=== PATIENT | female | born 1990 | race Caucasian/White ===

== ENCOUNTER → 2016-10-06 | Outpatient (CLI) | payer OTHER | LOC: RAD 13:56 | PROVIDERS: ATTEND Nurse Practitioner Acute Care | DX: R50.9 Fever, unspecified (principal) | CPT/HCPCS: 71020; 87804 ==

== ENCOUNTER 2017-01-04 16:48 | Emergency (ER) | payer OTHER ==
--- NOTE | 2017-01-04 17:16 | ER Document Report ---
ED Medical Screen (RME) - General Chief Complaint: Upper Abdominal Pain Stated Complaint: ABDOMINAL PAIN Time Seen by Provider: 01/04/17 17:08 Notes: 26-year-old female without a gallbladder who presents with the onset of some initially epigastric pain on Tuesday. It has now spread more diffusely to the abdomen radiating to the back. She states nausea without vomiting, fevers, or dysuria. She states a mild nonbloody diarrhea. She got sent over from the doctor's office for further evaluation. Patient denies any missed menstrual periods. TRAVEL OUTSIDE OF THE [place] IN LAST 30 DAYS: No - Related Data Allergies/Adverse Reactions: hydrocodone bitartrate [From Vicodin] Adverse Reaction (Intermediate, Verified 01/04/17 16:55) NAUSEA VOMITTING Past Medical History - Past Medical History Cardiac Medical History: Reports: Hx Hypertension - DURING Denies: Hx Heart Murmur Pulmonary Medical History: Reports: Hx Asthma Denies: Hx Sleep Apnea, Hx Tuberculosis Renal/ Medical History: Reports: Hx Ovarian Cysts. Denies: Hx Peritoneal Dialysis GI Medical History: Reports: Hx Gastroesophageal Reflux Disease Psychiatric Medical History: Reports: Hx Depression Past Surgical History: Reports: Hx Breast Surgery, Hx Section, Hx Cholecystectomy, Hx Orthopedic Surgery - L arm w hardware, Hx Tubal Ligation - Immunizations Immunizations up to date: Yes Hx Diphtheria, Pertussis, Tetanus Vaccination: Yes - 2009 Physical Exam - Vital signs Vitals: Temp Pulse Resp BP Pulse Ox 98.5 F 100 16 143/88 H 99 01/04/17 16:58 01/04/17 16:58 01/04/17 16:58 01/04/17 16:58 01/04/17 16:58 Course - Vital Signs Vital signs: Temp Pulse Resp BP Pulse Ox 98.5 F 100 16 143/88 H 99 01/04/17 16:58 01/04/17 16:58 01/04/17 16:58 01/04/17 16:58 01/04/17 16:58
[2017-01-04 18:08] LABS: ABSOLUTE EOSINOPHILS # (AUTO) 0.1 10^3/uL (0.0-0.6); ABSOLUTE LYMPHOCYTES (AUTO) 1.5 10^3/uL (0.5-4.7); ABSOLUTE MONOCYTES (AUTO) 0.4 10^3/uL (0.1-1.4); ABSOLUTE NEUT (AUTO) 2.1 10^3/uL (1.7-8.2); BASOPHILS % (AUTO) 0.7 % (0-2); EOSINOPHILS % (AUTO) 2.2 % (0-6); HEMATOCRIT 38.4 % (36.0-47.0); HEMOGLOBIN 13.5 g/dL (12.0-15.5); HGB HCT DIFFERENCE 2.1; LYMPHOCYTES % (AUTO) 36.5 % (13-45); MEAN CORPUSCULAR HEMOGLOBIN 31.8 pg (27.0-33.4); MEAN CORPUSCULAR HGB CONC 35.1 g/dL (32.0-36.0); MEAN CORPUSCULAR VOLUME 91 fl (80-97); MONOCYTES % (AUTO) 10.1 % (3-13); RED BLOOD COUNT 4.24 10^6/uL (3.72-5.28); SEGMENTED NEUTROPHILS % (AUTO) 50.5 % (42-78); WHITE BLOOD COUNT 4.1 10^3/uL (4.0-10.5)
[2017-01-04 18:29] LABS: ALANINE AMINOTRANSFERASE 41 U/L (9-52); ALBUMIN 4.3 g/dL (3.5-5.0); ALKALINE PHOSPHATASE 45 U/L (38-126); ANION GAP 11 (5-19); ASPARTATE AMINO TRANSFERASE 29 U/L (14-36); BILIRUBIN,DIRECT 0.3 mg/dL (0.0-0.4); BILIRUBIN,TOTAL 0.6 mg/dL (0.2-1.3); BLOOD UREA NITROGEN 12 mg/dL (7-20); CALCIUM 9.7 mg/dL (8.4-10.2); CARBON DIOXIDE 26 mmol/L (22-30); CHLORIDE 102 mmol/L (98-107); CREATININE RESULT 0.66 mg/dL (0.52-1.25); GLUCOSE 111 mg/dL (75-110); LIPASE 91.8 U/L (23-300); POTASSIUM 4.3 mmol/L (3.6-5.0); SODIUM 138.7 mmol/L (137-145); TOTAL PROTEIN 7.6 g/dL (6.3-8.2)
[2017-01-04 18:46] LABS: APPEARANCE,URINE SLIGHTLY-CLOUDY; BILIRUBIN,URINE NEGATIVE (NEGATIVE); GLUCOSE, URINE NEGATIVE (NEGATIVE); KETONES,URINE NEGATIVE (NEGATIVE); LEUKOCYTE ESTERASE,URINE NEGATIVE (NEGATIVE); NITRITE,URINE NEGATIVE (NEGATIVE); PROTEIN,URINE NEGATIVE (NEGATIVE); URINE SPECIFIC GRAVITY 1.014; UROBILINOGEN,URINE NEGATIVE mg/dL (<2.0)
--- NOTE | 2017-01-04 20:44 | ER Document Report ---
ED GI/ - General Chief Complaint: Upper Abdominal Pain Stated Complaint: ABDOMINAL PAIN Time Seen by Provider: 01/04/17 17:08 Mode of Arrival: Ambulatory Information source: Patient TRAVEL OUTSIDE OF THE [place] IN LAST 30 DAYS: No - HPI Patient complains to provider of: Abdominal pain, Diarrhea Onset: Other - 5 days Timing/Duration: Persistent, Waxing and waning Quality of pain: Achy, Fullness, Pressure Severity at maximum: Moderate Severity in ED: Moderate Pain Level: 3 Location: Right flank Vaginal bleeding (Compared to normal period): None Associated symptoms: Diarrhea, Loss of appetite, Nausea Exacerbated by: Food Relieved by: Denies Similar symptoms previously: Yes Recently seen / treated by doctor: Yes - sent from urgent care Notes: 01/04/17 20:42 Patient is a 26-year-old female who was sent over from urgent care for complaints of right-sided abdominal pain that's been going on for the past 4-5 days, it's associated with diarrhea, symptoms are worsened after eating, she has pain radiating to her shoulder, she denies any vomiting, no fever, she does report no appetite, symptoms are consistent with when she had gallbladder pain in the past, however she had a cholecystectomy in 2012, history of as well, no other abdominal surgeries, no sick contacts, no questionable food intake - Related Data Allergies/Adverse Reactions: hydrocodone bitartrate [From Vicodin] Adverse Reaction (Intermediate, Verified 01/04/17 16:55) NAUSEA VOMITTING Past Medical History - General Information source: Patient - Social History Smoking Status: Never Smoker Chew tobacco use (# tins/day): No Frequency of alcohol use: None Drug Abuse: None Family History: Reviewed & Not Pertinent, Arthritis, CAD, CVA, DM, Hyperlipidemia, Hypertension, Malignancy, Thyroid Disfunction Patient has suicidal ideation: No Patient has homicidal ideation: No - Past Medical History Cardiac Medical History: Reports: Hx Hypertension - DURING Denies: Hx Heart Murmur Pulmonary Medical History: Reports: Hx Asthma Denies: Hx Sleep Apnea, Hx Tuberculosis Renal/ Medical History: Reports: Hx Ovarian Cysts. Denies: Hx Peritoneal Dialysis GI Medical History: Reports: Hx Gastroesophageal Reflux Disease Psychiatric Medical History: Reports: Hx Depression Past Surgical History: Reports: Hx Breast Surgery, Hx Section, Hx Cholecystectomy, Hx Orthopedic Surgery - L arm w hardware, Hx Tubal Ligation - Immunizations Immunizations up to date: Yes Hx Diphtheria, Pertussis, Tetanus Vaccination: Yes - 2009 Review of Systems - Review of Systems Constitutional: No symptoms reported EENT: No symptoms reported Cardiovascular: No symptoms reported Respiratory: No symptoms reported Gastrointestinal: See HPI Genitourinary: No symptoms reported Female Genitourinary: No symptoms reported Musculoskeletal: No symptoms reported Skin: No symptoms reported Hematologic/Lymphatic: No symptoms reported Neurological/Psychological: No symptoms reported -: Yes All other systems reviewed and negative Physical Exam - Vital signs Vitals: Temp Pulse Resp BP Pulse Ox 98.5 F 100 16 143/88 H 99 01/04/17 16:58 01/04/17 16:58 01/04/17 16:58 01/04/17 16:58 01/04/17 16:58 Interpretation: Normal - General General appearance: Appears well, Alert - HEENT Head: Normocephalic, Atraumatic Eyes: Normal Pupils: PERRL - Respiratory Respiratory status: No respiratory distress Chest status: Nontender Breath sounds: Normal Chest palpation: Normal - Cardiovascular Rhythm: Regular Heart sounds: Normal auscultation Murmur: No - Abdominal Inspection: Normal Distension: No distension Bowel sounds: Normal Tenderness: Tender - Right flank Organomegaly: No organomegaly - Back Back: Normal, Nontender - Extremities General upper extremity: Normal inspection, Nontender, Normal color, Normal ROM , Normal temperature General lower extremity: Normal inspection, Nontender, Normal color, Normal ROM , Normal temperature, Normal weight bearing. No: Latesha's sign - Neurological Neuro grossly intact: Yes Cognition: Normal Orientation: AAOx4 Allyson Coma Scale Eye Opening: Spontaneous [place] Coma Scale Verbal: Oriented [place] Coma Scale Motor: Obeys Commands [place] Coma Scale Total: 15 Speech: Normal Motor strength normal: LUE, RUE, LLE, RLE Sensory: Normal - Psychological Associated symptoms: Normal affect, Normal mood - Skin Skin Temperature: Warm Skin Moisture: Dry Skin Color: Normal Course - Re-evaluation Re-evalutation: 01/05/17 00:55 Lab and imaging findings were discussed with patient at bedside which are unremarkable, she was given a copy of her CT scan for her records and advised to follow-up with a score caller for further evaluation and treatment, she will be given a prescription for Nexium and advised to return if symptoms worsen, patient acknowledges understanding and agreement with this plan - Vital Signs Vital signs: Temp Pulse Resp BP Pulse Ox 97.9 F 85 16 122/74 100 01/04/17 23:43 01/04/17 23:43 01/04/17 16:58 01/04/17 23:43 01/04/17 23:43 - Laboratory Result Diagrams: 01/04/17 17:20 01/04/17 17:20 Laboratory results interpreted by me: 01/04/17 17:20 Glucose 111 H - Diagnostic Test Radiology reviewed: Image reviewed, Reports reviewed Discharge - Discharge Clinical Impression: Abdominal pain Qualifiers: Abdominal location: generalized Qualified Code(s): R10.84 - Generalized abdominal pain Condition: Stable Disposition: HOME, SELF-CARE Instructions: Abdominal Pain ([facility]), Gastroenterology Additional Instructions: Follow up with your primary care provider and a score caller in one to 2 days. Return to the emergency room immediately if symptoms worsen or any additional concerns. Prescriptions: Esomeprazole Mag Trihydrate [Nexium] 40 mg PO DAILY #30 cap Forms: Return to Work
[2017-01-04] MEDS ORDERED: MORPHINE SULFATE 10 MG/ML INJ IV ONE (21:29)
[2017-01-04] MEDS ORDERED: NORMAL SALINE 1000 ML 1,000 ML IV PRN (21:29)
[2017-01-04] MEDS ORDERED: ONDANSETRON HCL INJ/PF 4 MG/2 ML SDV IV ONE ×2 (21:29→22:34)
[2017-01-05 01:12] VITALS: BP 125/76
== END 2017-01-05 01:11 | disposition home or self-care (01) ==
LOC: ER 16:48
DX: R10.84 Generalized abdominal pain (principal); R10.10 Upper abdominal pain, unspecified; R19.7 Diarrhea, unspecified
CPT/HCPCS: 96376; 99284; 96361; 96374; 96375; 36415; 83690; 85025; 81025; 80053; 81001; 74177; J2270; J2405; J7030

== ENCOUNTER 2017-02-12 19:25 | Inpatient (IN) | payer OTHER ==
[2017-02-12] MEDS ORDERED: CEFTRIAXONE 2 GM/D5W RTU 50 ML IV ONE (19:58)
[2017-02-12] MEDS ORDERED: KETOROLAC TROMETHAMINE INJ/PF 30 MG/1 ML SDV IV ONE (20:10)
--- NOTE | 2017-02-12 20:13 | ER Document Report ---
ED General - General Chief Complaint: Fever Stated Complaint: ABDOMINAL PAIN Time Seen by Provider: 02/12/17 20:03 Mode of Arrival: Ambulatory Information source: Patient Notes: 26-year-old female presents with complaints of fever abdominal pain diarrhea. Patient notes she has been feeling ill since yesterday, her was seen by myself and had an extensive workup due to septic shock yesterday and admitted. TRAVEL OUTSIDE OF THE [place] IN LAST 30 DAYS: No - HPI Onset: Yesterday Onset/Duration: Persistent Quality of pain: Achy Severity: Mild Pain Level: 1 Associated symptoms: Diarrhea, Fever, Nausea, Vomiting Exacerbated by: Denies Relieved by: Denies Similar symptoms previously: No Recently seen / treated by doctor: No - Related Data Allergies/Adverse Reactions: lamotrigine [From Lamictal] Allergy (Verified 02/12/17 19:45) hydrocodone bitartrate [From Vicodin] Adverse Reaction (Intermediate, Verified 02/12/17 19:44) NAUSEA VOMITTING Past Medical History - Social History Smoking Status: Never Smoker Cigarette use (# per day): No Chew tobacco use (# tins/day): No Smoking Education Provided: No Family History: Reviewed & Not Pertinent, Arthritis, CAD, CVA, DM, Hyperlipidemia, Hypertension, Malignancy, Thyroid Disfunction - Past Medical History Cardiac Medical History: Reports: Hx Hypertension - DURING Denies: Hx Heart Murmur Pulmonary Medical History: Reports: Hx Asthma Denies: Hx Sleep Apnea, Hx Tuberculosis Renal/ Medical History: Reports: Hx Ovarian Cysts. Denies: Hx Peritoneal Dialysis GI Medical History: Reports: Hx Gastroesophageal Reflux Disease Psychiatric Medical History: Reports: Hx Depression Past Surgical History: Reports: Hx Breast Surgery, Hx Section, Hx Cholecystectomy, Hx Orthopedic Surgery - L arm w hardware, Hx Tubal Ligation - Immunizations Immunizations up to date: Yes Hx Diphtheria, Pertussis, Tetanus Vaccination: Yes - 2009 Review of Systems - Review of Systems Notes: REVIEW OF SYSTEMS: CONSTITUTIONAL : Admits to fever EENT: Denies eye, ear, throat, or mouth pain or symptoms. Denies nasal or sinus congestion or discharge. Denies throat, tongue, or mouth swelling or difficulty swallowing. CARDIOVASCULAR: Denies chest pain. Denies palpitations or racing or irregular heart beat. Denies ankle edema. RESPIRATORY: Denies cough, cold, or chest congestion. Denies shortness of breath, difficulty breathing, or wheezing. GASTROINTESTINAL: Admits to abdominal pain nausea vomiting diarrhea GENITOURINARY: Denies difficulty urinating, painful urination, burning, frequency, blood in urine, or discharge. FEMALE GENITOURINARY: Denies vaginal bleeding, heavy or abnormal periods, irregular periods. Denies vaginal discharge or odor. MUSCULOSKELETAL: Denies back or neck pain or stiffness. Denies joint pain or swelling. SKIN: Denies rash, lesions or sores. HEMATOLOGIC : Denies easy bruising or bleeding. LYMPHATIC: Denies swollen, enlarged glands. NEUROLOGICAL: Denies confusion or altered mental status. Denies passing out or loss of consciousness. Denies dizziness or lightheadedness. Denies headache. Denies weakness or paralysis or loss of use of either side. Denies problems with gait or speech. Denies sensory loss, numbness, or tingling. Denies seizures. PSYCHIATRIC: Denies anxiety or stress. Denies depression, suicidal ideation, or homicidal ideation. ALL OTHER SYSTEMS REVIEWED AND NEGATIVE. PHYSICAL EXAMINATION: GENERAL: Ill-appearing female febrile HEAD: Atraumatic, normocephalic. EYES: Pupils equal round and reactive to light, extraocular movements intact, conjunctiva are normal. ENT: Nares patent, oropharynx clear without exudates. Moist mucous membranes. NECK: Normal range of motion, supple without lymphadenopathy LUNGS: Breath sounds clear to auscultation bilaterally and equal. No wheezes rales or rhonchi. HEART: Tachycardic ABDOMEN: Soft, generalized tenderness Female : deferred Musculoskeletal: Normal range of motion, no pitting or edema. No cyanosis. NEUROLOGICAL: Cranial nerves grossly intact. Normal speech, normal gait. Normal sensory, motor exams PSYCH: Normal mood, normal affect. SKIN: Warm, Dry, normal turgor, no rashes or lesions noted. Dictation was performed using [employer] [employer] voice recognition software Physical Exam - Vital signs Vitals: Temp Pulse Resp BP Pulse Ox 101.7 F H 140 H 20 146/94 H 100 02/12/17 19:45 02/12/17 19:45 02/12/17 19:45 02/12/17 19:45 02/12/17 19:45 Course - Re-evaluation Re-evalutation: 02/12/17 20:12 Lab work pending patient will be given IV fluids. She appears ill as well similar to 02/13/17 04:09 Improved on her vital signs with 4 bags of IV fluids, however she still looks ill, patient began having hallucinations while in the room. Given her presentation and the fact that her is in septic shock with similar complaint I do believe is appropriate to keep the patient for observation purposes and IV fluid hydration - Vital Signs Vital signs: Temp Pulse Resp BP Pulse Ox 99.5 F 116 H 18 125/78 100 02/13/17 03:35 02/13/17 03:35 02/13/17 03:35 02/13/17 03:35 02/13/17 03:35 - Laboratory Result Diagrams: 02/12/17 20:40 02/12/17 20:40 Laboratory results interpreted by me: 02/12/17 02/12/17 02/12/17 20:40 20:40 21:59 Seg Neutrophils % 82.6 H Lymphocytes % 8.8 L Absolute Neutrophils 8.7 H AST 42 H Total Protein 8.8 H Urine Ketones TRACE H - EKG Interpretation by Me EKG shows normal: Sinus rhythm, Verdi, Intervals Rate: Tachycardia Discharge - Discharge Clinical Impression: SIRS (systemic inflammatory response syndrome) Altered mental status Qualifiers: Altered mental status type: disorientation Qualified Code(s): R41.0 - Disorientation, unspecified Diarrhea Qualifiers: Diarrhea type: infectious Qualified Code(s): A09 - Infectious gastroenteritis and colitis, unspecified Condition: Fair Disposition: ADMITTED INPATIENT Admitting Provider: Hospitalist Unit Admitted: Telemetry
[2017-02-12] MEDS: NORMAL SALINE 1000 ML 1,000 ML IV PRN ×5 (20:37→23:24)
[2017-02-12] MEDS ORDERED: ONDANSETRON HCL INJ/PF 4 MG/2 ML SDV IV ONE (20:38)
[2017-02-12 21:09] LABS: ABSOLUTE LYMPHOCYTES (AUTO) 0.9 10^3/uL (0.5-4.7); ABSOLUTE MONOCYTES (AUTO) 0.9 10^3/uL (0.1-1.4); ABSOLUTE NEUT (AUTO) 8.7 10^3/uL (1.7-8.2); BASOPHILS % (AUTO) 0.3 % (0-2); EOSINOPHILS % (AUTO) 0.1 % (0-6); LYMPHOCYTES % (AUTO) 8.8 % (13-45); MEAN CORPUSCULAR HGB CONC 34.2 g/dL (32.0-36.0); MEAN CORPUSCULAR VOLUME 91 fl (80-97); MONOCYTES % (AUTO) 8.2 % (3-13); RED BLOOD COUNT 4.52 10^6/uL (3.72-5.28); RED CELL DISTRIBUTION WIDTH 12.8 % (11.5-14.0); SEGMENTED NEUTROPHILS % (AUTO) 82.6 % (42-78); WHITE BLOOD COUNT 10.5 10^3/uL (4.0-10.5)
[2017-02-12 21:13] LABS: VENOUS BLOOD BASE EXCESS 1.9 mmol/L; VENOUS BLOOD HCO3 26.8 mmol/L (20-32); VENOUS BLOOD PCO2 42.6 mmHg (35-63); VENOUS BLOOD PH 7.42 (7.30-7.42)
--- NOTE | 2017-02-12 21:19 | RADIOLOGY REPORT (SQ) ---
EXAM DESCRIPTION: CHEST SINGLE VIEW COMPLETED DATE/TIME: 02/12/2017 9:13 pm REASON FOR STUDY: fever COMPARISON: None. EXAM PARAMETERS: NUMBER OF VIEWS: One view. TECHNIQUE: Single frontal radiographic view of the chest acquired. 10/06/2016 LIMITATIONS: None. FINDINGS: LUNGS AND PLEURA: No opacities, masses or pneumothorax. No pleural effusion. MEDIASTINUM AND HILAR STRUCTURES: No masses. Contour normal. HEART AND VASCULAR STRUCTURES: Heart normal in size. Normal vasculature. BONES: No acute findings. HARDWARE: None in the chest. OTHER: No other significant finding. IMPRESSION: NO ACUTE RADIOGRAPHIC FINDING IN THE CHEST. TECHNICAL DOCUMENTATION: JOB ID: [id number]
[2017-02-12 21:30] LABS: ALANINE AMINOTRANSFERASE 46 U/L (9-52); ALBUMIN 4.6 g/dL (3.5-5.0); ALKALINE PHOSPHATASE 76 U/L (38-126); ANION GAP 12 (5-19); ASPARTATE AMINO TRANSFERASE 42 U/L (14-36); BILIRUBIN,DIRECT 0.4 mg/dL (0.0-0.4); BILIRUBIN,TOTAL 0.6 mg/dL (0.2-1.3); BLOOD UREA NITROGEN 12 mg/dL (7-20); CALCIUM 9.3 mg/dL (8.4-10.2); CARBON DIOXIDE 25 mmol/L (22-30); CHLORIDE 101 mmol/L (98-107); CREATININE RESULT 0.64 mg/dL (0.52-1.25); GLUCOSE 81 mg/dL (75-110); POTASSIUM 3.8 mmol/L (3.6-5.0); SODIUM 137.7 mmol/L (137-145); TOTAL PROTEIN 8.8 g/dL (6.3-8.2)
[2017-02-12 21:34] LABS: PROTHROMBIN TIME 13.6 SEC (11.4-15.4)
[2017-02-12 21:35] LABS: PARTIAL THROMBOPLASTIN TIME 33.2 SEC (23.5-35.8)
[2017-02-12] MEDS ORDERED: NORMAL SALINE 1000 ML 1,000 ML IV PRN (21:36)
[2017-02-12] MEDS ORDERED: MORPHINE SULFATE 10 MG/ML INJ IV ONE (21:39)
[2017-02-12 22:16] LABS: APPEARANCE,URINE SLIGHTLY-CLOUDY; BILIRUBIN,URINE NEGATIVE (NEGATIVE); GLUCOSE, URINE NEGATIVE (NEGATIVE); KETONES,URINE TRACE mg/dL (NEGATIVE); LEUKOCYTE ESTERASE,URINE NEGATIVE (NEGATIVE); NITRITE,URINE NEGATIVE (NEGATIVE); PROTEIN,URINE NEGATIVE (NEGATIVE); URINE SPECIFIC GRAVITY 1.025; UROBILINOGEN,URINE NEGATIVE mg/dL (<2.0)
--- NOTE | 2017-02-12 22:16 | EKG REPORT ---
SEVERITY:- OTHERWISE NORMAL ECG - SINUS TACHYCARDIA : Confirmed by: Lyubov Shaw 12-Feb-2017 22:16:07
[2017-02-12 22:20] LABS: BACTERIA,URINE TRACE /HPF; RBC,URINE 0-1 /HPF; WBC,URINE 0-1 /HPF
[2017-02-12] MEDS ORDERED: HYDROMORPHONE HCL INJ/PF 2 MG/ML AMPULE IV ONE (23:03)
[2017-02-12] MEDS ORDERED: METRONIDAZOLE 500 MG TABLET PO ONE (23:23)
[2017-02-12] MEDS ORDERED: CIPROFLOXACIN HCL 500 MG TABLET PO ONE (23:23)
[2017-02-12] MEDS ORDERED: ONDANSETRON 4 MG TAB.RAPDIS PO PRN (23:28)
[2017-02-12] MEDS ORDERED: ACETAMINOPHEN 325 MG TABLET PO PRN (23:43)
[2017-02-13] MEDS: METRONIDAZOLE 500 MG TABLET PO SCH ×2 (01:14→05:25)
[2017-02-13] MEDS ORDERED: KETOROLAC TROMETHAMINE INJ/PF 30 MG/1 ML SDV IV ONE (01:46)
[2017-02-13] MEDS: NORMAL SALINE 1000 ML 1,000 ML IV SCH (01:58)
[2017-02-13] MEDS: PROMETHAZINE HCL 25 MG TABLET PO PRN ×3 (02:09→23:02)
[2017-02-13] MEDS ORDERED: HYDROMORPHONE HCL INJ/PF 2 MG/ML AMPULE SUBCUT PRN (02:41)
--- NOTE | 2017-02-13 04:03 | PDOC H&P ---
History of Present Illness Admission Date/PCP: 02/12/17 23:43 MELISSA NORIEGA DO Patient complains of: Abdominal pain and diarrhea History of Present Illness: LISETH BINGHAM is a 26 year old female with a past medical history of irritable bowel syndrome and migraine headache would been her usual state of health until approximately 48 hours prior to presentation developing abdominal discomfort progressing to abdominal cramping and diarrhea subjective fever and chills prompting her to seek evaluation emergency room where she is found to have tachycardia fever and delirium with hallucinations. Her has been admitted with sepsis and enteritis of the last 24 hours his culture and stool results remain negative. She is referred to the hospitalist for admission. Past Medical History Cardiac Medical History: Reports: Hypertension - DURING Denies: Heart Murmur Pulmonary Medical History: Reports: Asthma Denies: Sleep Apnea, Tuberculosis Neurological Medical History: Reports: Migraine GI Medical History: Reports: Gastroesophageal Reflux Disease, Other - Irritable bowel syndrome Psychiatric Medical History: Reports: Depression Hematology: Reports: Anemia - ON FE Denies: Hemophilia Past Surgical History Past Surgical History: Reports: Section, Cholecystectomy, Orthopedic Surgery - L arm w hardware, Tubal Ligation Social History Information Source: Patient, [facility] Records Lives with: Family, Spouse/Significant other Smoking Status: Never Smoker Frequency of Alcohol Use: None - Advance Directive Resuscitation Status: Full Code Family History Family History: Reviewed & Not Pertinent, Arthritis, CAD, CVA, DM, Hyperlipidemia, Hypertension, Malignancy, Thyroid Disfunction Parental Family History Reviewed: Yes Children Family History Reviewed: Yes Sibling(s) Family History Reviewed.: Yes Medication/Allergy Home Medications: Dextroamphetamine/Amphetamine [Adderall 10 mg Tablet] 10 mg PO QAM 05/27/14 Lamotrigine [Lamictal 100 mg Tablet] 200 mg PO QHS 05/27/14 Levofloxacin [Levaquin 750 mg Tablet] 750 mg PO DAILY #10 tablet 12/05/14 Dicyclomine HCl [Bentyl 20 mg Tablet] 20 mg PO QID #40 tablet 05/07/16 Ondansetron [Zofran Odt 4 mg Tablet] 4 mg PO Q4HP PRN #30 tab.rapdis 05/07/16 Esomeprazole Mag Trihydrate [Nexium] 40 mg PO DAILY #30 cap 01/05/17 Allergies/Adverse Reactions: lamotrigine [From Lamictal] Allergy (Verified 02/12/17 19:45) hydrocodone bitartrate [From Vicodin] Adverse Reaction (Intermediate, Verified 02/12/17 19:44) NAUSEA VOMITTING Review of Systems Constitutional: ABSENT: chills, fever(s), headache(s), weight gain, weight loss Eyes: ABSENT: visual disturbances Ears: ABSENT: hearing changes Cardiovascular: ABSENT: chest pain, dyspnea on exertion, edema, orthropnea, palpitations Respiratory: ABSENT: cough, hemoptysis Gastrointestinal: ABSENT: abdominal pain, constipation, diarrhea, hematemesis, hematochezia, nausea, vomiting Genitourinary: ABSENT: dysuria, hematuria Musculoskeletal: ABSENT: joint swelling Integumentary: ABSENT: rash, wounds Neurological: ABSENT: abnormal gait, abnormal speech, confusion, dizziness, focal weakness, syncope Psychiatric: ABSENT: anxiety, depression, homidical ideation, suicidal ideation Endocrine: ABSENT: cold intolerance, heat intolerance, polydipsia, polyuria Hematologic/Lymphatic: ABSENT: easy bleeding, easy bruising Physical Exam Vital Signs: Temp Pulse Resp BP Pulse Ox 99.5 F 116 H 18 125/78 100 02/13/17 03:35 02/13/17 03:35 02/13/17 03:35 02/13/17 03:35 02/13/17 03:35 Intake & Output 02/11/17 02/12/17 02/13/17 11:59 11:59 11:59 Weight 47.1 kg General appearance: PRESENT: no acute distress, cooperative, mild distress, well -developed, well-nourished Head exam: PRESENT: atraumatic, normocephalic Eye exam: PRESENT: conjunctiva pink, EOMI, PERRLA. ABSENT: scleral icterus Ear exam: PRESENT: normal external ear exam Mouth exam: PRESENT: moist, tongue midline Neck exam: ABSENT: carotid bruit, JVD, lymphadenopathy, thyromegaly Respiratory exam: PRESENT: clear to auscultation anthony. ABSENT: rales, rhonchi, wheezes Cardiovascular exam: PRESENT: RRR. ABSENT: diastolic murmur, rubs, systolic murmur Pulses: PRESENT: normal dorsalis pedis pul Vascular exam: PRESENT: normal capillary refill GI/Abdominal exam: PRESENT: hyperactive bowel sounds, normal bowel sounds, soft , tenderness - Diffuse tenderness without guarding. ABSENT: distended, guarding , mass, organolmegaly, rebound Rectal exam: PRESENT: deferred Extremities exam: PRESENT: full ROM. ABSENT: calf tenderness, clubbing, pedal edema Neurological exam: PRESENT: alert, awake, oriented to person, oriented to place , oriented to time, oriented to situation, CN II-XII grossly intact. ABSENT: motor sensory deficit Psychiatric exam: PRESENT: appropriate affect, normal mood. ABSENT: homicidal ideation, suicidal ideation Skin exam: PRESENT: dry, intact, warm. ABSENT: cyanosis, rash Results Impressions: Chest X-Ray 02/12/17 19:58 IMPRESSION: NO ACUTE RADIOGRAPHIC FINDING IN THE CHEST. Assessment & Plan - Diagnosis (1) Enteritis Is this a current diagnosis for this admission?: YesPlan: By history and exam should be treated empirically with Flagyl and Cipro and symptomatic management, follow-up CBC blood and stool culture (2) Altered mental status Qualifiers: Altered mental status type: disorientation Qualified Code(s): R41.0 - Disorientation, unspecified Is this a current diagnosis for this admission?: YesPlan: Encephalopathy with delirium of acute illness and fever continue the correct underlying cause and supportive care limiting narcotics given hallucinations (3) SIRS (systemic inflammatory response syndrome) Is this a current diagnosis for this admission?: YesPlan: Secondary to #1 IV fluid challenge empiric antibiotics and frequent reevaluation. - Time Time Spent: 30 to 50 Minutes - Inpatient Certification Medical Necessity: Need Close Monitoring Due to Risk of Patient Decompensation
[2017-02-13] MEDS ORDERED: HEPARIN SOD (PORCINE) 5,000 UNIT/ML 1 ML SYRINGE SUBCUT SCH (06:00)
[2017-02-13 08:08] LABS: ABSOLUTE LYMPHOCYTES (AUTO) 0.9 10^3/uL (0.5-4.7); ABSOLUTE MONOCYTES (AUTO) 0.8 10^3/uL (0.1-1.4); ABSOLUTE NEUT (AUTO) 7.5 10^3/uL (1.7-8.2); BASOPHILS % (AUTO) 0.1 % (0-2); EOSINOPHILS % (AUTO) 0.1 % (0-6); HEMATOCRIT 34.4 % (36.0-47.0); HGB HCT DIFFERENCE 0.4; LYMPHOCYTES % (AUTO) 9.5 % (13-45); MEAN CORPUSCULAR HEMOGLOBIN 30.9 pg (27.0-33.4); MEAN CORPUSCULAR HGB CONC 33.7 g/dL (32.0-36.0); MEAN CORPUSCULAR VOLUME 92 fl (80-97); MONOCYTES % (AUTO) 8.8 % (3-13); RED BLOOD COUNT 3.74 10^6/uL (3.72-5.28); RED CELL DISTRIBUTION WIDTH 12.8 % (11.5-14.0); SEGMENTED NEUTROPHILS % (AUTO) 81.5 % (42-78); WHITE BLOOD COUNT 9.2 10^3/uL (4.0-10.5)
[2017-02-13 08:14] LABS: HEMOGLOBIN 11.6 g/dL (12.0-15.5)
[2017-02-13] MEDS: LANSOPRAZOLE 30 MG TAB.RAP.DR PO SCH (08:24)
[2017-02-13] MEDS: KETOROLAC TROMETHAMINE INJ/PF 30 MG/1 ML SDV IV PRN ×3 (08:38→21:09)
[2017-02-13] MEDS: CIPROFLOXACIN 400 MG/D5W RTU 200 ML IV SCH ×2 (09:18→21:11)
[2017-02-13] MEDS: DICYCLOMINE HCL 20 MG TABLET PO SCH ×4 (09:19→21:11)
[2017-02-13 09:23] LABS: ANION GAP 12 (5-19); BLOOD UREA NITROGEN 5 mg/dL (7-20); CALCIUM 7.1 mg/dL (8.4-10.2); CARBON DIOXIDE 19 mmol/L (22-30); CHLORIDE 106 mmol/L (98-107); CREATININE RESULT 0.57 mg/dL (0.52-1.25); GLUCOSE 79 mg/dL (75-110); POTASSIUM 3.3 mmol/L (3.6-5.0); SODIUM 136.5 mmol/L (137-145)
[2017-02-13] MEDS ORDERED: (PENDING PHARMACY ID) (Esomeprazole Mag Trihydrate [Nexium] 40 MG) PO SCH (10:00)
[2017-02-13] MEDS ORDERED: NORMAL SALINE 1000 ML 1,000 ML IV ONE (11:41)
[2017-02-13] MEDS: METRONIDAZOLE 500 MG/NS RTU 100 ML IV SCH ×3 (11:52→23:36)
[2017-02-13] MEDS ORDERED: CHOLESTYRAMINE/ASPARTAME 4 GM PACKET PO SCH (12:00)
--- NOTE | 2017-02-13 14:06 | RADIOLOGY REPORT (SQ) ---
EXAM DESCRIPTION: CT ABD/PELVIS NO ORAL OR IV COMPLETED DATE/TIME: 02/13/2017 1:50 pm REASON FOR STUDY: abdominal pain/fever COMPARISON: 01/04/2017 TECHNIQUE: CT scan of the abdomen and pelvis performed without intravenous or oral contrast. Images reviewed with lung, soft tissue, and bone windows. Reconstructed coronal and sagittal MPR images revi ewed. All images stored on PACS. All CT scanners at this facility use dose modulation, iterative reconstruction, and/or weight based d osing when appropriate to reduce radiation dose to as low as reasonably achievable (ALARA). [facility]: Dose Right [facility]: CareDose [facility]: Dose Right [facility]: Teradose 4D [facility]: Han grass biomass RADIATION DOSE: 4.80mGy. LIMITATIONS: Low BMI FINDINGS: LOWER CHEST: Minimal basilar atelectasis. Breast prostheses. NON-CONTRASTED LIVER, SPLEEN, ADRENALS: Evaluation limited by lack of IV contrast. No identified sign ificant masses. PANCREAS: No masses. No peripancreatic inflammatory changes. GALLBLADDER: No identified stones by CT criteria. No inflammatory changes to suggest cholecystitis. RIGHT KIDNEY AND URETER: No suspicious masses. Assessment limited by lack of IV contrast. No signif icant calcifications. No hydronephrosis or hydroureter. LEFT KIDNEY AND URETER: No suspicious masses. Assessment limited by lack of IV contrast. No signifi cant calcifications. No hydronephrosis or hydroureter. AORTA AND RETROPERITONEUM: No aneurysm. No retroperitoneal masses or adenopathy. BOWEL AND PERITONEAL CAVITY: Extensive fluid-filled bowel without distention. APPENDIX: Not identified. PELVIS, BLADDER, AND ABDOMINAL WALL:No abnormal masses. No free fluid. Bladder normal. BONES: No significant findings. OTHER: No other significant finding. IMPRESSION: Fluid filled bowel without distention. No obstructive uropathy. TECHNICAL DOCUMENTATION: JOB ID: [id number] Quality ID # [id number]: Final reports with documentation of one or more dose reduction techniques (e.g., Au tomated exposure control, adjustment of the mA and/or kV according to patient size, use of iterative reconstruction technique) 2010 [employer]- All Rights Reserved
[2017-02-13] MEDS: NORMAL SALINE 1000 ML 1,000 ML IV PRN ×2 (15:11→17:44)
[2017-02-13] MEDS: BUPROPION HCL 100 MG TABLET PO SCH ×2 (15:11→21:11)
[2017-02-13] MEDS ORDERED: ONDANSETRON HCL INJ/PF 4 MG/2 ML SDV IV PRN (15:21)
[2017-02-13] MEDS ORDERED: DIPHENHYDRAMINE HCL 50 MG/ML VIAL IV ONE (15:30)
--- NOTE | 2017-02-13 16:04 | PDOC PROGRESS REPORT ---
Subjective Progress Note for:: 02/13/17 Subjective:: Patient complains of general aches and pains, fever, chills, headache and is requesting narcotics. Patient denies chest pain, vomiting, rash, focal weakness. Physical Exam Vital Signs: Temp Pulse Resp BP Pulse Ox 99.6 F 87 15 117/70 100 02/13/17 11:20 02/13/17 11:20 02/13/17 11:20 02/13/17 11:20 02/13/17 11:20 Intake & Output 02/12/17 02/13/17 02/14/17 06:59 06:59 06:59 Intake Total 200 540 Output Total 600 600 Balance -400 -60 Weight 47.1 kg Exam: GENERAL: acutely ill appearing HEENT: Conjunctiva clear, nonicteric, moist mucous membranes, no JVD, midline trachea RESPIRATORY: CTAB CARDIAC: Regular rate and rhythm, no murmurs/gallops/rubs ABDOMEN: Soft, mildly distended, mildly TTP, hyperactive bowel sounds, no rebound, no guarding EXTREMETIES: no cyanosis, clubbing, edema NEUROLOGIC: Alert, oriented to person/place, CN's grossly intact, no focal deficits SKIN: No rash, lesion Results Laboratory Results: 02/13/17 07:30 02/13/17 08:50 02/13/17 02/13/17 02/13/17 07:30 07:30 08:50 WBC 9.2 RBC 3.74 Hgb 11.6 L D Hct 34.4 L MCV 92 MCH 30.9 MCHC 33.7 RDW 12.8 Plt Count 158 Seg Neutrophils % 81.5 H Lymphocytes % 9.5 L Monocytes % 8.8 Eosinophils % 0.1 Basophils % 0.1 Absolute Neutrophils 7.5 Absolute Lymphocytes 0.9 Absolute Monocytes 0.8 Absolute Eosinophils 0.0 Absolute Basophils 0.0 Sodium Cancelled 136.5 L Potassium Cancelled 3.3 L Chloride Cancelled 106 Carbon Dioxide Cancelled 19 L Anion Gap Cancelled 12 BUN Cancelled 5 L Creatinine Cancelled 0.57 Est GFR ( Amer) Cancelled > 60 Est GFR (Non-Af Amer) Cancelled > 60 Glucose Cancelled 79 Calcium Cancelled 7.1 L Impressions: Chest X-Ray 02/12/17 19:58 IMPRESSION: NO ACUTE RADIOGRAPHIC FINDING IN THE CHEST. Abdomen/Pelvis CT 02/13/17 00:00 IMPRESSION: Fluid filled bowel without distention. No obstructive uropathy. Assessment & Plan - Diagnosis (1) SIRS (systemic inflammatory response syndrome) Is this a current diagnosis for this admission?: YesPlan: Infectious diarrhea/colitis as this is currently running in her family. Currently pending stool culture, blood cultures, with negative chest x-ray and UA. (2) Enteritis Is this a current diagnosis for this admission?: YesPlan: No narcotics at this time secondary to infectious diarrhea and risk for prolonged course of illness. Toradol and tylenol prn On cipro and flagyl pending stool cultures. - Time Time Spent with patient: 25-34 minutes Medications reviewed and adjusted accordingly: Yes Anticipated discharge: Home Within: within 24 hours
[2017-02-13] MEDS ORDERED: ACETAMINOPHEN 325 MG TABLET PO ONE (16:30)
[2017-02-14] MEDS: NORMAL SALINE 1000 ML 1,000 ML IV SCH (02:00)
[2017-02-14] MEDS: METRONIDAZOLE 500 MG/NS RTU 100 ML IV SCH ×2 (05:18→13:21)
[2017-02-14] MEDS: PROCHLORPERAZINE EDISYLATE INJ 10 MG/2 ML VIAL IV PRN ×2 (05:20→18:06)
[2017-02-14] MEDS: BUPROPION HCL 100 MG TABLET PO SCH ×2 (05:20→13:23)
[2017-02-14] MEDS ORDERED: DIPHENHYDRAMINE HCL 50 MG/ML VIAL IV PRN (07:58)
[2017-02-14 09:05] LABS: BLOOD UREA NITROGEN 5 mg/dL (7-20); CARBON DIOXIDE 20 mmol/L (22-30); CREATININE RESULT 0.54 mg/dL (0.52-1.25); GLUCOSE 79 mg/dL (75-110); MAGNESIUM 1.4 mg/dL (1.6-2.3); POTASSIUM 3.2 mmol/L (3.6-5.0); SODIUM 139.5 mmol/L (137-145)
[2017-02-14 09:07] LABS: ANION GAP 12 (5-19); CHLORIDE 108 mmol/L (98-107)
[2017-02-14 09:14] LABS: CALCIUM 6.8 mg/dL (8.4-10.2)
[2017-02-14] MEDS ORDERED: NORMAL SALINE 1000 ML 1,000 ML IV PRN (09:18)
[2017-02-14] MEDS: CIPROFLOXACIN 400 MG/D5W RTU 200 ML IV SCH (09:31)
[2017-02-14] MEDS: DICYCLOMINE HCL 20 MG TABLET PO SCH ×2 (09:31→13:22)
[2017-02-14] MEDS: LANSOPRAZOLE 30 MG TAB.RAP.DR PO SCH (09:32)
[2017-02-14] MEDS ORDERED: MULTIVITAMINS W-IRON TABLET, CHEWABLE PO SCH (10:00)
[2017-02-14] MEDS: MAGNESIUM SULFATE/D5W 100 ML IV SCH ×3 (11:08→18:05)
[2017-02-14] MEDS ORDERED: POTASSI CL 20 MEQ/50 ML RIDER 50 ML IV SCH (11:30)
[2017-02-14] MEDS: POTASSIUM CHLORIDE 10 MEQ TABLET.SA PO SCH ×4 (12:02→15:37)
[2017-02-14] MEDS ORDERED: NORMAL SALINE 1000 ML 1,000 ML IV ONE (16:26)
--- NOTE | 2017-02-14 16:46 | PDOC PROGRESS REPORT ---
Subjective Progress Note for:: 02/14/17 Subjective:: Patient complains of Vomiting all night and general malaise. Denies chest pain, shortness of breath, diarrhea, and focal weakness. Improvement of her symptomatology with Compazine. Patient stays curled on her side and does not open her eyes or engage for this interview. Patient seen with nurse at bedside. Physical Exam Vital Signs: Temp Pulse Resp BP Pulse Ox 98.5 F 72 16 96/59 L 99 02/14/17 11:37 02/14/17 11:37 02/14/17 11:37 02/14/17 11:37 02/14/17 11:37 Intake & Output 02/13/17 02/14/17 02/15/17 06:59 06:59 06:59 Intake Total 200 4374 Output Total 600 1800 Balance -400 2574 Weight 47.1 kg 51.2 kg Exam: GENERAL: acutely ill appearing HEENT: moist mucous membranes, no JVD, midline trachea RESPIRATORY: CTAB CARDIAC: Regular rate and rhythm, no murmurs/gallops/rubs ABDOMEN: Soft, mildly distended, mildly TTP, hyperactive bowel sounds, no rebound, no guarding EXTREMETIES: no cyanosis, clubbing, edema NEUROLOGIC: Alert, oriented to person/place, CN's grossly intact, no focal deficits SKIN: No rash, lesion Results Laboratory Results: 02/13/17 07:30 02/14/17 08:30 02/14/17 02/14/17 08:30 08:30 Sodium 139.5 Potassium 3.2 L Chloride 108 H Carbon Dioxide 20 L Anion Gap 12 BUN 5 L Creatinine 0.54 Est GFR ( Amer) > 60 Est GFR (Non-Af Amer) > 60 Glucose 79 Calcium 6.8 L* Magnesium 1.4 L Albumin 2.4 L Impressions: Chest X-Ray 02/12/17 19:58 IMPRESSION: NO ACUTE RADIOGRAPHIC FINDING IN THE CHEST. Abdomen/Pelvis CT 02/13/17 00:00 IMPRESSION: Fluid filled bowel without distention. No obstructive uropathy. Assessment & Plan - Diagnosis (1) SIRS (systemic inflammatory response syndrome) Is this a current diagnosis for this admission?: YesPlan: Infectious diarrhea/colitis as this is currently running in her family. Currently pending stool culture, blood cultures, with negative chest x-ray and UA. (2) Enteritis Is this a current diagnosis for this admission?: YesPlan: No narcotics at this time secondary to infectious diarrhea and risk for prolonged course of illness. Toradol and tylenol prn On cipro and flagyl pending stool cultures. Pt requires IV fluids and is unable to take p.o. She will continue to require hospitalization until she is able to tolerated oral challenge. - Time Time Spent with patient: 25-34 minutes Medications reviewed and adjusted accordingly: Yes Anticipated discharge: Home Within: within 24 hours
[2017-02-14 17:06] LABS: ANION GAP 7 (5-19); BLOOD UREA NITROGEN 5 mg/dL (7-20); CARBON DIOXIDE 22 mmol/L (22-30); CHLORIDE 109 mmol/L (98-107); CREATININE RESULT 0.53 mg/dL (0.52-1.25); GLUCOSE 110 mg/dL (75-110); POTASSIUM 3.6 mmol/L (3.6-5.0); SODIUM 138.4 mmol/L (137-145)
[2017-02-14] MEDS ORDERED: CALCIUM GLUCONATE 1000 MG/10 ML INJ IV ONE (17:15)
[2017-02-14 17:22] LABS: CALCIUM 7.2 mg/dL (8.4-10.2)
[2017-02-14 19:50] VITALS: BP 103/63
--- NOTE | 2017-02-27 13:38 | PDOC DISCHARGE SUMMARY ---
General - Admit/Disc Date/PCP Admission Date/Primary Care Provider: 02/12/17 23:43 MELISSA NORIEGA, DO Discharge Date: 02/15/17 - Discharge Diagnosis (1) SIRS (systemic inflammatory response syndrome) Is this a current diagnosis for this admission?: Yes (2) Enteritis Is this a current diagnosis for this admission?: Yes (3) Anemia Is this a current diagnosis for this admission?: Yes - Additional Information Resuscitation Status: Full Code Discharge Diet: As Tolerated, Clear Liquids, Full Liquids Discharge Activity: Activity As Tolerated Home Medications: Bupropion HCl [Wellbutrin Xl 300mg 24hr Tablet] 300 mg PO DAILY 02/13/17 Acidoph/L.bulg/Bif.b/S.thermop [Bacid Caplet] 1 each PO BID #60 tablet 02/14/17 Ciprofloxacin HCl [Cipro 500 mg Tablet] 500 mg PO BID #20 tablet 02/14/17 Multivitamins W-Iron [Flintstones Chewable Multivit W/Fe Tab] 2 tab PO DAILY tab.chew 02/14/17 Ondansetron [Zofran Odt 4 mg Tablet] 4 mg PO Q4HP PRN #10 tab.rapdis 02/14/17 Prochlorperazine Maleate [Compazine 10 mg Tablet] 10 mg PO Q6HP PRN #10 tablet 02/14/17 History of Present Illness History of Present Illness: LISETH BINGHAM is a 26 year old female with a past medical history of irritable bowel syndrome and migraine headache would been her usual state of health until approximately 48 hours prior to presentation developing abdominal discomfort progressing to abdominal cramping and diarrhea subjective fever and chills prompting her to seek evaluation emergency room where she is found to have tachycardia fever and delirium with hallucinations. Her has been admitted with sepsis and enteritis of the last 24 hours his culture and stool results remain negative. She is referred to the hospitalist for admission. Hospital Course Hospital Course: Started on Cipro and Flagyl empirically based on her exposure and IV fluids. Patient's stool studies were negative and she was discharged on Cipro and Flagyl with encouragement to drink clear liquids. Patient's heart rate overall improved. Patient was profoundly dehydrated. She was found to be anemic which is likely secondary to iron deficiency anemia. Patient's symptomatology improved And she was discharged in stable condition. Physical Exam Vital Signs: Temp Pulse Resp BP Pulse Ox 98.8 F 81 20 103/63 100 02/14/17 19:48 02/14/17 19:48 02/14/17 19:48 02/14/17 19:48 02/14/17 19:48 Exam: GENERAL: No acute distress HEENT: moist mucous membranes, no JVD, midline trachea RESPIRATORY: CTAB CARDIAC: Regular rate and rhythm, no murmurs/gallops/rubs ABDOMEN: Soft, non distended, mildly TTP, hyperactive bowel sounds, no rebound, no guarding EXTREMETIES: no cyanosis, clubbing, edema NEUROLOGIC: Alert, oriented to person/place, CN's grossly intact, no focal deficits SKIN: No rash, lesion Results Laboratory Results: 02/13/17 07:30 02/14/17 16:42 Impressions: Chest X-Ray 02/12/17 19:58 IMPRESSION: NO ACUTE RADIOGRAPHIC FINDING IN THE CHEST. Abdomen/Pelvis CT 02/13/17 00:00 IMPRESSION: Fluid filled bowel without distention. No obstructive uropathy. Qualifiers PATEINT BEING DISCHARGED WITH ANY OF THE FOLLOWING DIAGNOSIS?: No Plan Time Spent: Less than 30 Minutes
== END 2017-02-14 20:00 | disposition left against medical advice (07) | DRG 392 ==
LOC: ER 19:25 → EH 23:43 → 5 02-13 01:34
PROVIDERS: ADMIT Internal Medicine; ATTEND Internal Medicine
DX: A09 Infectious gastroenteritis and colitis, unspecified (principal); K21.9 Gastro-esophageal reflux disease without esophagitis; Z79.899 Other long term (current) drug therapy; Z90.49 Acquired absence of other specified parts of digestive tract; Z88.8 Allergy status to other drugs, medicaments and biological substances
CPT/HCPCS: 36415; 71010; 74176; 80048; 80053; 81001; 81025; 82040; 82803; 82962; 83605; 83735; 85025; 85610; 85730; 87040; 87045; 87086; 87177; 87205; 93005; 93010; 96361; 96365; 96375; 99285; J0610; J0696; J0744; J0780; J1170; J1200; J1885; J2270; J2405; J3475; J3490; J7030

== ENCOUNTER 2017-03-15 20:03 | Emergency (ER) | payer OTHER ==
[2017-03-15] MEDS ORDERED: MORPHINE SULFATE 10 MG/ML INJ ONE (20:17)
[2017-03-15] MEDS ORDERED: MORPHINE SULFATE 10 MG/ML INJ IV ONE (20:17)
[2017-03-15] MEDS ORDERED: ONDANSETRON HCL INJ/PF 4 MG/2 ML SDV IV ONE (20:17)
[2017-03-15] MEDS ORDERED: ONDANSETRON HCL INJ/PF 4 MG/2 ML SDV ONE (20:20)
--- NOTE | 2017-03-15 20:24 | ER Document Report ---
ED General - General Stated Complaint: CHEST PAIN Time Seen by Provider: 03/15/17 20:17 Mode of Arrival: Medic Information source: Patient Notes: This is a 26-year-old female that is brought in by EMS for left chest pain and muscle spasm which goes right to the back. Patient states that the discomfort started earlier. She had went to the orthopedic clinic to get her shoulder worked out and x-rays of the shoulder looked good and she was placed on lidocaine patches and given Flexeril for muscle spasm. She called EMS because of severe muscle spasm. She was given IV Valium which seemed to help on the car ride over. Patient states that her shoulder started hurting when she slept on an ice pad and had severe spasm upon waking. Family history: Her mother does have a history of coronary artery disease and DVT. Past surgical history bilateral tubal ligation. TRAVEL OUTSIDE OF THE [place] IN LAST 30 DAYS: No - HPI Onset: Yesterday Onset/Duration: Gradual Quality of pain: Dull Severity: Moderate Pain Level: 3 Associated symptoms: denies: Chills, Fever, Shortness of breath Exacerbated by: Movement Relieved by: Remaining still Similar symptoms previously: No Recently seen / treated by doctor: Yes - Related Data Allergies/Adverse Reactions: lamotrigine [From Lamictal] Allergy (Verified 02/12/17 19:45) hydrocodone bitartrate [From Vicodin] Adverse Reaction (Intermediate, Verified 02/12/17 19:44) NAUSEA VOMITTING Past Medical History - General Information source: Patient - Social History Smoking Status: Never Smoker Cigarette use (# per day): No Chew tobacco use (# tins/day): No Smoking Education Provided: No Frequency of alcohol use: None Drug Abuse: None Lives with: Family Family History: Reviewed & Not Pertinent, Arthritis, CAD, CVA, DM, Hyperlipidemia, Hypertension, Malignancy, Thyroid Disfunction Patient has suicidal ideation: No Patient has homicidal ideation: No - Past Medical History Cardiac Medical History: Reports: Hx Hypertension - DURING Denies: Hx Heart Murmur Pulmonary Medical History: Reports: Hx Asthma Denies: Hx Sleep Apnea, Hx Tuberculosis Neurological Medical History: Reports: Hx Migraine Renal/ Medical History: Reports: Hx Ovarian Cysts. Denies: Hx Peritoneal Dialysis GI Medical History: Reports: Hx Gastroesophageal Reflux Disease Psychiatric Medical History: Reports: Hx Depression Past Surgical History: Reports: Hx Breast Surgery, Hx Section, Hx Cholecystectomy, Hx Orthopedic Surgery - L arm w hardware, Hx Tubal Ligation - Immunizations Immunizations up to date: Yes Hx Diphtheria, Pertussis, Tetanus Vaccination: Yes - 2009 Review of Systems - Review of Systems Constitutional: denies: Chills, Fever EENT: No symptoms reported Cardiovascular: No symptoms reported Respiratory: No symptoms reported Gastrointestinal: No symptoms reported Genitourinary: No symptoms reported Female Genitourinary: No symptoms reported Musculoskeletal: See HPI Skin: No symptoms reported Hematologic/Lymphatic: No symptoms reported Neurological/Psychological: No symptoms reported Physical Exam - Vital signs Vitals: Resp BP Pulse Ox 16 125/94 H 98 03/15/17 21:04 03/15/17 21:04 03/15/17 21:04 Notes: Physical exam: GENERAL: 26-year-old alert and oriented 3, appears uncomfortable woman, HEAD: Atraumatic, normocephalic. EYES: Pupils equal round and reactive to light, extraocular movements intact, sclera anicteric, conjunctiva are normal. ENT: TMs normal, nares patent, oropharynx clear without exudates. Moist mucous membranes. NECK: Normal range of motion, supple without lymphadenopathy or JVD. LUNGS: Breath sounds clear to auscultation bilaterally and equal. No wheezes rales or rhonchi. HEART: Regular rate and rhythm without murmurs, rubs or gallops. ABDOMEN: Soft, normoactive bowel sounds. No tenderness to palpation. No guarding, no rebound. No masses appreciated. EXTREMITIES: Normal range of motion, no pitting or edema. No clubbing or cyanosis. NEUROLOGICAL: Cranial nerves II through XII grossly intact. Normal speech, normal gait. PSYCH: Normal mood, normal affect. SKIN: Warm, Dry, normal turgor, no rashes or lesions noted. Course - Vital Signs Vital signs: Temp Pulse Resp BP Pulse Ox 13 144/96 H 100 03/15/17 23:16 03/15/17 23:16 03/15/17 23:16 - Laboratory Result Diagrams: 03/15/17 20:33 03/15/17 20:33 Laboratory results interpreted by me: 03/15/17 21:00 Urine Blood MODERATE H Urine Ascorbic Acid 40 H - Diagnostic Test Radiology reviewed: Image reviewed, Reports reviewed - CTA of the chest shows no acute pulmonary emboli - EKG Interpretation by Me Rate: Normal Rhythm: NSR - EKG shows normal sinus rhythm with a ventricular rate of 88, no acute ST-T wave changes. Discharge - Discharge Clinical Impression: Severe muscle spasms: Left trapezius Condition: Stable Disposition: HOME, SELF-CARE Additional Instructions: As we discussed, the CT of the chest showed no evidence of blood clots, lung collapse, no acute infection. Your blood work looked good. The white blood count was normal. Recommendations: Rest, drink plenty of fluids. Take ibuprofen every 6 hours as needed. Take Percocet as prescribed. When starting the Medrol Dosepak, hold off on the ibuprofen (they are both anti- inflammatories and they can upset her stomach if taken together). Return to the ER for worsening pain, any changes to the scan (redness, Swelling)or any concerns or getting worse. I would try warm packs to the area to try and loosen up the muscle. Follow-up with your primary care doctor in the next few days. Prescriptions: Methylprednisolone [Medrol 4 mg Dosepack 21 Tab/Pack] 4 mg PO ASDIR PRN #21 tab.ds.pk PRN Reason: Oxycodone HCl/Acetaminophen [Percocet 5-325 mg Tablet] 1 - 2 tab PO ASDIR PRN # 25 tablet PRN Reason:
[2017-03-15] MEDS ORDERED: NORMAL SALINE 1000 ML 1,000 ML IV PRN (20:25)
[2017-03-15 20:52] LABS: ABSOLUTE BASOPHILS # (AUTO) 0.1 10^3/uL (0.0-0.2); ABSOLUTE EOSINOPHILS # (AUTO) 0.1 10^3/uL (0.0-0.6); ABSOLUTE LYMPHOCYTES (AUTO) 1.4 10^3/uL (0.5-4.7); ABSOLUTE MONOCYTES (AUTO) 0.4 10^3/uL (0.1-1.4); BASOPHILS % (AUTO) 1.6 % (0-2); EOSINOPHILS % (AUTO) 3.4 % (0-6); HEMATOCRIT 38.6 % (36.0-47.0); HEMOGLOBIN 13.2 g/dL (12.0-15.5); LYMPHOCYTES % (AUTO) 34.2 % (13-45); MEAN CORPUSCULAR HEMOGLOBIN 31.4 pg (27.0-33.4); MEAN CORPUSCULAR HGB CONC 34.1 g/dL (32.0-36.0); MEAN CORPUSCULAR VOLUME 92 fl (80-97); MONOCYTES % (AUTO) 10.9 % (3-13); RED BLOOD COUNT 4.19 10^6/uL (3.72-5.28); RED CELL DISTRIBUTION WIDTH 13.1 % (11.5-14.0); SEGMENTED NEUTROPHILS % (AUTO) 49.9 % (42-78)
--- NOTE | 2017-03-15 20:56 | RADIOLOGY REPORT (SQ) ---
EXAM DESCRIPTION: CHEST SINGLE VIEW COMPLETED DATE/TIME: 03/15/2017 8:46 pm REASON FOR STUDY: left chest pain COMPARISON: 02/12/2017 EXAM PARAMETERS: NUMBER OF VIEWS: One view. TECHNIQUE: Single frontal radiographic view of the chest acquired. RADIATION DOSE: NA LIMITATIONS: None. FINDINGS: LUNGS AND PLEURA: No opacities, masses or pneumothorax. No pleural effusion. MEDIASTINUM AND HILAR STRUCTURES: No masses. Contour normal. HEART AND VASCULAR STRUCTURES: Heart normal in size. Normal vasculature. BONES: No acute findings. HARDWARE: None in the chest. OTHER: No other significant finding. IMPRESSION: NO ACUTE RADIOGRAPHIC FINDING IN THE CHEST. TECHNICAL DOCUMENTATION: JOB ID: [id number]
[2017-03-15] MEDS ORDERED: MORPHINE SULFATE 10 MG/ML INJ IV PRN ×2 (21:04→23:50)
[2017-03-15 21:06] LABS: ALANINE AMINOTRANSFERASE 43 U/L (9-52); ALBUMIN 4.2 g/dL (3.5-5.0); ALKALINE PHOSPHATASE 59 U/L (38-126); ANION GAP 12 (5-19); ASPARTATE AMINO TRANSFERASE 35 U/L (14-36); BILIRUBIN,DIRECT 0.3 mg/dL (0.0-0.4); BILIRUBIN,TOTAL 0.4 mg/dL (0.2-1.3); BLOOD UREA NITROGEN 12 mg/dL (7-20); CALCIUM 9.5 mg/dL (8.4-10.2); CARBON DIOXIDE 25 mmol/L (22-30); CHLORIDE 105 mmol/L (98-107); CREATININE RESULT 0.68 mg/dL (0.52-1.25); GLUCOSE 107 mg/dL (75-110); MAGNESIUM 2.1 mg/dL (1.6-2.3); SODIUM 141.5 mmol/L (137-145); TOTAL PROTEIN 7.2 g/dL (6.3-8.2)
[2017-03-15 21:16] LABS: APPEARANCE,URINE CLEAR; BILIRUBIN,URINE NEGATIVE (NEGATIVE); GLUCOSE, URINE NEGATIVE (NEGATIVE); KETONES,URINE NEGATIVE (NEGATIVE); LEUKOCYTE ESTERASE,URINE NEGATIVE (NEGATIVE); NITRITE,URINE NEGATIVE (NEGATIVE); PROTEIN,URINE NEGATIVE (NEGATIVE); URINE SPECIFIC GRAVITY 1.023; UROBILINOGEN,URINE NEGATIVE mg/dL (<2.0)
[2017-03-15 23:20] VITALS: BP 144/96
[2017-03-15] MEDS ORDERED: CALCIUM GLUCONATE 1000 MG/10 ML INJ IV ONE (23:50)
--- NOTE | 2017-03-16 00:20 | RADIOLOGY REPORT (SQ) ---
EXAM DESCRIPTION: CTA CHEST COMPLETED DATE/TIME: 03/15/2017 10:46 pm REASON FOR STUDY: pleuritic left chest pain COMPARISON: CR, 03/15/2017. TECHNIQUE: CT scan of the chest performed using helical scanning technique with dynamic intravenous contrast injection. Images reviewed with lung, soft tissue and bone windows. Reconstructed coronal and sagittal MPR images reviewed. Additional 3 dimensional post-processing performed to develop Maximal Intensity Projection images (MD P). All images stored on PACS. All CT scanners at this facility use dose modulation, iterative reconstruction, and/or weight based d osing when appropriate to reduce radiation dose to as low as reasonably achievable (ALARA). [facility]: Dose Right [facility]: CareDose [facility]: Dose Right [facility]: Teradose 4D [facility]: [employer] CONTRAST TYPE AND DOSE: contrast/concentration: Isovue 370.00 mg/ml; Total Contrast Delivered: 75.0 ml; Total Saline Delivered: 40.0 ml RENAL FUNCTION: Creatinine 0.7. RADIATION DOSE: Up-to-date CT equipment and radiation dose reduction techniques were employed. CTDIv ol: 9.9 - 14.3 mGy. DLP: 494 mGy-cm. . LIMITATIONS: None. FINDINGS: LUNGS AND PLEURA: No masses, infiltrates, pneumothorax. No pleural effusions, calcificati ons. AORTA AND GREAT VESSELS: No aneurysm or dissection. HEART: No pericardial effusion. PULMONARY ARTERIES: No emboli visualized in the main pulmonary arteries or the segmental branches. HILAR AND MEDIASTINAL STRUCTURES: No identified masses or abnormal nodes. HARDWARE: None in the chest. UPPER ABDOMEN: No significant findings. Limited exam. THYROID AND OTHER SOFT TISSUES: No masses. No adenopathy. BONES: No acute or significant finding. 3D MIPS: Confirm above findings. OTHER: Bilateral mammary prostheses. IMPRESSION: NORMAL CTA OF THE CHEST. NO PULMONARY EMBOLI. TECHNICAL DOCUMENTATION: JOB ID: [id number] Quality ID # [id number]: Final reports with documentation of one or more dose reduction techniques (e.g., Au tomated exposure control, adjustment of the mA and/or kV according to patient size, use of iterative reconstruction technique) 2010 [employer]- All Rights Reserved
[2017-03-16] MEDS ORDERED: MORPHINE SULFATE 10 MG/ML INJ IV PRN (02:14)
--- NOTE | 2017-03-16 17:37 | EKG REPORT ---
SEVERITY:- ABNORMAL ECG - SINUS RHYTHM PROBABLE LEFT ATRIAL ABNORMALITY NONSPECIFIC T ABNORMALITIES, ANT-LAT LEADS : Confirmed by: Katharine Garcia MD 16-Mar-2017 17:37:12
== END 2017-03-16 03:33 | disposition home or self-care (01) ==
LOC: ER 20:03
DX: M62.830 Muscle spasm of back (principal); R07.9 Chest pain, unspecified
CPT/HCPCS: 93005; 96376; 99285; 96375; 96365; 96366; 36415; 82550; 84702; 83735; 85025; 80053; 81001; 71010; 71275; 93010; L3650; J0610; J2270 ×2; J2405

== ENCOUNTER → 2017-09-09 | Outpatient (CLI) | payer OTHER ==
--- NOTE | 2017-09-09 14:47 | RADIOLOGY REPORT (SQ) ---
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 Images reviewed with lung, soft tissue and bone windows. Reconstructed coronal and sagittal MPR images reviewed. All images stored on PACS. All CT scanners at this facility use dose modulation, iterative reconstruction, and/or weight based d osing when appropriate to reduce radiation dose to as low as reasonably achievable (ALARA). [facility]: Dose Right [facility]: CareDose [facility]: Dose Right [facility]: Teradose 4D [facility]: [employer] CONTRAST TYPE AND DOSE: See separate report of the same date. RENAL FUNCTION: See separate report. RADIATION DOSE: . LIMITATIONS: None. FINDINGS: LUNGS AND PLEURA: No opacities, nodules, masses. No pneumothorax. No effusions. HILAR AND MEDIASTINAL STRUCTURES: No identified masses or abnormal nodes. HEART AND VASCULAR STRUCTURES: No aneurysm or dissection. No central pulmonary emboli. No pericardi al effusion. HARDWARE: None in the chest. UPPER ABDOMEN: See separate report of the CT of the abdomen. THYROID AND OTHER SOFT TISSUES: Breast implants. BONES: No significant finding. OTHER: No other significant finding. IMPRESSION: No acute findings in the chest. TECHNICAL DOCUMENTATION: JOB ID: [id number] Quality ID # [id number]: Final reports with documentation of one or more dose reduction techniques (e.g., Au tomated exposure control, adjustment of the mA and/or kV according to patient size, use of iterative reconstruction technique) 2010 [employer]- All Rights Reserved
--- NOTE | 2017-09-09 14:49 | RADIOLOGY REPORT (SQ) ---
EXAM DESCRIPTION: CT ABD/PELVIS WITH IV ORAL COMPLETED DATE/TIME: 09/09/2017 1:48 pm REASON FOR STUDY: C59.9 ENLARGED LYMPH NODES, UNSPECIFIED R59.9 ENLARGED LYMPH NODES, UNSPECIFIED C 85.80 OTH TYPES OF NON-HODGKIN LYMPHOMA, UNSPECIFIED SITE R51 HEADACHE COMPARISON: None. TECHNIQUE: CT scan of the abdomen and pelvis performed using helical scanning technique with dynamic intravenous contrast injection. Oral contrast. Images reviewed with lung, soft tissue, and bone win dows. Reconstructed coronal and sagittal MPR images reviewed. Delayed images for evaluation of the ur inary system also acquired. All images stored on PACS. All CT scanners at this facility use dose modulation, iterative reconstruction, and/or weight based d osing when appropriate to reduce radiation dose to as low as reasonably achievable (ALARA). [facility]: Dose Right [facility]: CareDose [facility]: Dose Right [facility]: Teradose 4D [facility]: [employer] CONTRAST TYPE AND DOSE: contrast/concentration: Isovue 370.00 mg/ml; Total Contrast Delivered: 49.0 ml; Total Saline Delivered: 49.0 ml RENAL FUNCTION: GFR > 60. RADIATION DOSE: CT Rad equipment meets quality standard of care and radiation dose reduction techniq ues were employed. CTDIvol: 4.4 - 4.5 mGy. DLP: 596 mGy-cm.. LIMITATIONS: None. FINDINGS: LOWER CHEST: See separate report of the CT of the chest. LIVER: Normal size. No masses. No dilated ducts. SPLEEN: Normal size. No focal lesions. PANCREAS: No masses. No significant calcifications. No adjacent inflammation or peripancreatic fluid collections. Pancreatic duct not dilated. GALLBLADDER: Surgically absent. ADRENAL GLANDS: No significant masses or asymmetry. RIGHT KIDNEY AND URETER: No solid masses. No significant calcifications. No hydronephrosis or hyd roureter. LEFT KIDNEY AND URETER: No solid masses. No significant calcifications. No hydronephrosis or hydr oureter. AORTA AND VESSELS: No aneurysm. No dissection. Renal arteries, SMA, celiac without stenosis. RETROPERITONEUM: No retroperitoneal adenopathy, hemorrhage or masses. BOWEL AND PERITONEAL CAVITY: No masses or inflammatory changes. No free fluid or peritoneal masses. APPENDIX: Normal. PELVIS: No mass. No free fluid. Normal bladder. ABDOMINAL WALL: No masses. No hernias. BONES: No significant or acute findings. OTHER: Tubal ligation clips. IMPRESSION: NO SIGNIFICANT OR ACUTE FINDING IN THE ABDOMEN OR PELVIS ON CT SCAN WITH IV CONTRAST. TECHNICAL DOCUMENTATION: JOB ID: [id number] Quality ID # [id number]: Final reports with documentation of one or more dose reduction techniques (e.g., Au tomated exposure control, adjustment of the mA and/or kV according to patient size, use of iterative reconstruction technique) 2010 [employer]- All Rights Reserved
--- NOTE | 2017-09-09 16:20 | RADIOLOGY REPORT (SQ) ---
EXAM DESCRIPTION: MRI HEAD COMBO COMPLETED DATE/TIME: 09/09/2017 2:43 pm REASON FOR STUDY: R51 HEADACHE R59.9 ENLARGED LYMPH NODES, UNSPECIFIED C85.80 OTH TYPES OF NON-HOD GKIN LYMPHOMA, UNSPECIFIED SITE R51 HEADACHE COMPARISON: CT facial bones/ sinuses 03/12/2015 CT chest abdomen pelvis same date TECHNIQUE: Multiplanar imaging includes noncontrasted T1, T2, FLAIR, diffusion with ADC map and post gadolinium contrast T1 sequences. Images stored on PACS. CONTRAST TYPE AND DOSE: 10 mL Multihance. RENAL FUNCTION: GFR > 60. LIMITATIONS: None. FINDINGS: ANATOMY: No anomalies. Normal vascular flow voids. Pituitary fossa normal. CSF SPACES: Normal in size and contour. No hemorrhage. CEREBRUM: Sulci and gyri normal in size and contour. Normal white matter signal on FLAIR imaging. No evidence of hemorrhage, mass, or extraaxial fluid collection. No abnormal enhancement post contrast. POSTERIOR FOSSA: No signal alteration. No hemorrhage. No edema, masses, or mass effect. Internal chano tory canals, cerebellopontine angles, mastoids normal. No enhancing lesions. No abnormal enhancement post contrast. DIFFUSION IMAGING: Negative for acute or subacute infarction. ORBITS: No masses. Globes normal. PARANASAL SINUSES: No fluid levels. Mucosa normal. OTHER: No other significant finding. IMPRESSION: NORMAL MRI OF THE BRAIN WITHOUT AND WITH INTRAVENOUS GADOLINIUM CONTRAST. EVIDENCE OF ACUTE STROKE: NO. TECHNICAL DOCUMENTATION: JOB ID: [id number] [employer]- All Rights Reserved
== END ==
LOC: RAD 12:14
PROVIDERS: ATTEND Internal Medicine Hematology & Oncology
DX: R59.9 Enlarged lymph nodes, unspecified (principal); C85.80 Other specified types of non-Hodgkin lymphoma, unspecified site; R51 Headache
CPT/HCPCS: 82565; 70553; 71260; 74177; A9577